=== PATIENT | female | born 1975 | race Caucasian/White ===

== ENCOUNTER 2016-08-24 05:10 | Inpatient (IN) | payer OTHER ==
[2016-08-17 13:36] VITALS: BMI 36.0
[2016-08-24] MEDS ORDERED: VASOPRESSIN 20 UNITS/ML VIAL IV ONE (07:54)
[2016-08-24] MEDS ORDERED: ROPIVACAINE HCL 0.5% 30ML VIAL ONE (09:16)
[2016-08-24] MEDS ORDERED: MIDAZOLAM HCL 2 MG/2 ML SINGLE DOSE VIAL ONE ×3 (09:17→09:58)
[2016-08-24] MEDS ORDERED: ceFAZolin SODIUM 1 GM VIAL ONE (09:58)
[2016-08-24] MEDS ORDERED: DEXAMETHASONE SOD PHOSPHATE 4 MG/1 ML VIAL ONE (09:58)
[2016-08-24] MEDS ORDERED: ROCURONIUM BROMIDE 50 MG/5 ML VIAL ONE (09:58)
[2016-08-24] MEDS ORDERED: KETOROLAC TROMETHAMINE 30 MG/1 ML VIAL ONE (09:58)
[2016-08-24] MEDS ORDERED: PROPOFOL 20 ML ONE (09:58)
[2016-08-24] MEDS ORDERED: SODIUM CHLORIDE 0.9% P/F 10 ML VIAL IJ ONE (09:58)
[2016-08-24] MEDS ORDERED: ceFAZolin SODIUM 1 GM VIAL IVPB ONE (10:18)
[2016-08-24] MEDS ORDERED: HYDROmorphone HCL CARPU-JECT 1 MG/1 ML DISP.SYRIN IVPUSH PRN (11:06)
[2016-08-24] MEDS ORDERED: ONDANSETRON 4 MG/2 ML VIAL IVPUSH PRN (11:06)
[2016-08-24] MEDS ORDERED: GLYCOPYRROLATE 0.2 MG/1 ML VIAL ONE (11:42)
[2016-08-24] MEDS ORDERED: NEOSTIGMINE METHYLSULFATE 0.5 MG/ML - 10 ML MDV ONE (11:42)
[2016-08-24] MEDS ORDERED: IBUPROFEN 800 MG/8 ML IJ IVPB PRN (12:01)
[2016-08-24] MEDS ORDERED: IBUPROFEN 600 MG TABLET (FP) PO PRN (12:01)
[2016-08-24] MEDS ORDERED: ONDANSETRON 4 MG/2 ML VIAL IVPB PRN (12:01)
--- NOTE | 2016-08-24 12:13 | HP ---
Past Medical History - Primary Care Physician PCP:: Christopher Marina - Admission Chief Complaint: pelvic pain, menometrorrhagia, fibroid uterus History of Present Illness: 41 yo f with hx of multiple myomas, second trimester wants to get preganat , has pelvic pain, heavey vaginal bleeding , admitted for multiple myomectomy, rba discussed History Source: Patient Limitations to Obtaining History: No Limitations - Past Medical History ...: 2 ...Para: 0 Heme/Onc: Yes: Anemia Additional Medical History: Obesity - Past Surgical History Hx Myomectomy: No Hx Transabdominal Cerclage: No - Smoking History Smoking history: Current some day smoker Have you smoked in the past 12 months: Yes Aproximately how many cigarettes per day: 1.5 If you are a former smoker, when did you quit?: 07/18/14 - Alcohol/Substance Use Hx Alcohol Use: No History of Substance Use: reports: None - Social History ADL: Independent History of Recent Travel: No Home Medications - Allergies Allergies/Adverse Reactions: Allergies Allergy/AdvReac Type Severity Reaction Status Date / Time No Known Allergies Allergy Verified 08/17/16 13:27 - Home Medications Home Medications: Ambulatory Orders Iron Polysaccharide Complex [Ferrex 150] 300 mg PO DAILY 08/17/16 Review of Systems - Review of Systems Constitutional: reports: Weakness Eyes: reports: No Symptoms HENT: reports: No Symptoms Neck: reports: No Symptoms Cardiovascular: reports: No Symptoms Gastrointestinal: reports: Abdominal Pain, Bloating Genitourinary: reports: Urgency, Vaginal Bleeding Breasts: reports: No Symptoms Reported Musculoskeletal: reports: No Symptoms Integumentary: reports: No Symptoms Neurological: reports: No Symptoms Endocrine: reports: No Symptoms Hematology/Lymphatic: reports: No Symptoms Psychiatric: reports: No Symptoms 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 Vital Signs: Vital Signs Temperature 97.5 F L 08/24/16 08:56 Pulse Rate 80 08/24/16 08:56 Respiratory Rate 18 08/24/16 08:56 Blood Pressure 127/84 08/24/16 08:56 O2 Sat by Pulse Oximetry (%) 97 08/24/16 09:06 Constitutional: Yes: Well Nourished, No Distress, Calm Eyes: Yes: WNL, Conjunctiva Clear, EOM Intact HENT: Yes: WNL, Atraumatic, Normocephalic Neck: Yes: WNL, Supple, Trachea Midline Cardiovascular: Yes: WNL, Regular Rate and Rhythm Respiratory: Yes: WNL, Regular, CTA Bilaterally Gastrointestinal: Yes: WNL ...Rectal Exam: Yes: WNL Renal/: Yes: WNL Pelvis: Yes: WNL Internal Exam Deferred: No Vaginal Exam: Yes: Normal Cervix: Yes: Normal Uterus: Yes: Enlarged, Lumpy, Mass, Tender Breast(s): Yes: WNL Musculoskeletal: Yes: WNL Extremities: Yes: WNL Integumentary: Yes: WNL Neurological: Yes: WNL, Alert, Oriented ...Motor Strength: WNL Psychiatric: Yes: WNL, Alert, Oriented Problem List - Problem (1) Pelvic pain Code(s): R10.2 - PELVIC AND PERINEAL PAIN (2) Leiomyoma of body of uterus Code(s): D25.9 - LEIOMYOMA OF UTERUS, UNSPECIFIED Qualifiers: Uterine leiomyoma location: subserosal Qualified Code(s): D25.2 - Subserosal leiomyoma of uterus (3) Menometrorrhagia Code(s): N92.1 - EXCESSIVE AND FREQUENT MENSTRUATION WITH IRREGULAR CYCLE Assessment/Plan abdominal myomectomy, rba discussed
[2016-08-24] MEDS ORDERED: HYDROmorphone HCL CARPU-JECT 2 MG/1 ML DISP.SYRIN ONE (12:32)
[2016-08-24] MEDS ORDERED: HYDROmorphone HCL CARPU-JECT 2 MG/1 ML DISP.SYRIN IVPUSH ONE ×4 (12:35→13:15)
[2016-08-24] MEDS ORDERED: HYDROmorphone *PCA* 10MG/50ML DISP.SYRIN PCA ONE ×2 (13:43→13:53)
[2016-08-24] MEDS: ELECTROLYTE-148 SOLN 1,000 ML IV SCH (19:29)
[2016-08-24] MEDS: LACTATED RINGERS SOLUTION 1,000 ML IV SCH (19:29)
[2016-08-24] MEDS: HYDROmorphone *PCA* 10MG/50ML DISP.SYRIN PCA SCH (19:31)
[2016-08-24] MEDS: CEFAZOLIN 2 GM/D5W 50 ML IVPB SCH (19:37)
[2016-08-25] MEDS: CEFAZOLIN 2 GM/D5W 50 ML IVPB SCH (02:44)
[2016-08-25] MEDS: oxyCODONE HCL 5 MG TABLET PO PRN ×3 (04:45→14:27)
[2016-08-25] MEDS ORDERED: HYDROmorphone *PCA* 10MG/50ML DISP.SYRIN PCA ONE (07:28)
[2016-08-25 07:45] LABS: BASOPHIL 0.2 % (0-2.0); EOSINOPHIL 0.5 % (0-4.5); MCH 21.6 pg (25.7-33.7); MCHC 30.5 g/dl (32.0-36.0); MEAN CELL VOLUME 70.9 fl (80-96); MEAN PLT VOLUME 10.7 fl (7.5-11.1); NEUTROPHILS 62.8 % (42.8-82.8); PLATELET COUNT 171 K/MM3 (134-434); RDW 21.7 % (11.6-15.6); WHITE BLOOD COUNT 6.9 K/mm3 (4.0-10.0)
[2016-08-25] MEDS: ELECTROLYTE-148 SOLN 1,000 ML IV SCH ×2 (07:45→14:30)
[2016-08-25] MEDS: HYDROmorphone *PCA* 10MG/50ML DISP.SYRIN PCA SCH (07:47)
[2016-08-25] MEDS ORDERED: BISACODYL 5 MG TABLET.DR (FP) PO ONE (08:50)
[2016-08-25] MEDS ORDERED: SIMETHICONE 80 MG TAB.CHEW (FP) PO PRN (08:51)
[2016-08-25 09:22] LABS: ANISOCYTOSIS 1+; HYPOCHROMIA 1+; PLATELET ESTIMATE ADEQUATE (NORMAL)
[2016-08-25] MEDS ORDERED: MULTIVITAMINS (DAILY MVI) TABLET (FP) PO SCH (10:00)
--- NOTE | 2016-08-25 10:43 | OP ---
DATE OF OPERATION: 08/24/2016 PREOPERATIVE DIAGNOSIS: Pelvic pain, menometrorrhagia, fibroid uterus. POSTOPERATIVE DIAGNOSIS: Pelvic pain, menometrorrhagia, fibroid uterus. PROCEDURE: Abdominal myomectomy. SURGEON: Christopher Muniz MD FORENSIC EXAMINER: Gloria Kiran MD ANESTHESIA: General. ESTIMATED BLOOD LOSS: 200 mL. DESCRIPTION OF PROCEDURE: The patient was taken to the operating room. Under adequate general anesthesia, a Pfannenstiel abdominal skin incision was made. Abdominal wall was cut layer by layer until the peritoneum was exposed and incised. Upon entering the abdominal cavity, upper abdomen was checked, was normal. Bowels were packed away. Uterus was enlarged, irregular, with multiple myomas. Five of them were seen. There was a large, approximately 5-cm myoma in the intramural fundal area of the uterus, and there was another 4-cm in the body of the uterus intramural in the midportion of the uterus. There was a 3-cm fibroid in the posterior wall of the uterus, and there were 2 smaller fibroids in the lower uterine segment area of the uterus. At this time the uterus was delivered to the surface, and the fibroids were infiltrated with dilute solution of vasopressin. An incision was made with the cautery over the serosa of the fibroid. Both edges were grasped with an Allis clamp, and then undermined with hemostat, and the serosa was from the myoma, and then myoma was dissected with blunt and with cautery until the base was reached, and the Tiffanie clamp was applied at the base of the fibroid and the pedicle was sutured with 2-0 Vicryl suture, and hemostasis was established. Then the uterus wall was reconstructed with a V-Loc suture in 3 layers. Hemostasis was established and then the serosa was brought together with baseball suture. The same procedure was repeated for all the fibroids, and there were a total of 5 fibroids removed. Then pelvic cavity irrigated an no active bleeding was seen. Both tubes were slightly dilated with multiple filmy adhesions. These adhesions were lysed and the tube was freed. There were small cysts on the left ovary which were drained and then hemostasis established with interrupted suture of 2-0 Vicryl. Then the Surgicel was applied over the fibroid and then peritoneum was closed with 0 Vicryl continuous suture, muscle was brought together with interrupted suture of 0 Vicryl. Fascia was closed with 0 Vicryl continuous suture, subcutaneous fat with interrupted suture of 0 Vicryl, and the skin was closed with 3-0 Vicryl subcuticular continuous suture. The patient tolerated the procedure well, left the OR in good condition. CHRISTOPHER MUNIZ M.D. [id number]
--- NOTE | 2016-08-25 11:34 | PN ---
Progress Note (short form) - Note Progress Note: pod 1 ,s/p multiple myomectomy Last Vital Signs Temp Pulse Resp BP Pulse Ox 98 F 72 18 108/60 100 08/25/16 06:00 08/25/16 07:47 08/25/16 07:47 08/25/16 07:47 08/24/16 21:00 CBC, BMP 08/25/16 06:50 has dull low abdominal pain, no vaginal bleeding, no dizziness abdomen soft, no distension, no cva, no guarding no vaginal bleeding, no calf tenderness impression anemia . chronic, asymptomatic advised observation, repeat cbc in am iron and voit Problem List - Problems (1) Pelvic pain Code(s): R10.2 - PELVIC AND PERINEAL PAIN (2) Leiomyoma of body of uterus Code(s): D25.9 - LEIOMYOMA OF UTERUS, UNSPECIFIED Qualifiers: Uterine leiomyoma location: subserosal Qualified Code(s): D25.2 - Subserosal leiomyoma of uterus (3) Menometrorrhagia Code(s): N92.1 - EXCESSIVE AND FREQUENT MENSTRUATION WITH IRREGULAR CYCLE
[2016-08-25 14:14] VITALS: BP 111/68; PULSE 78; TEMP 98.2
[2016-08-25] MEDS: LACTATED RINGERS SOLUTION 1,000 ML IV SCH (14:30)
--- NOTE | 2016-08-25 14:31 | PN ---
Progress Note (short form) - Note Progress Note: S: Pt. resting comfortably. O: VAS 1-2/10 with rest. 6/10 with ambulation A/P: Pod #1 s/p Abd myomectomy with bilat. TAP blocks 1. SCRAP METAL BURNER d/cd this am 2. Continue po pain meds as ordered
--- NOTE | 2016-08-25 15:04 | PATH ---
Surgical Pathology Report Patient Name: LOPEZ SUAREZ [facility]. Rec. #: [id number] /Age/Gender: 1975 (Age: 41) / F Account: [id number] Location: [facility] MED/SURG Taken: 08/24/2016 Received: 08/24/2016 Reported: 08/25/2016 Physicians: Christopher Marina M.D. Specimen(s) Received UTERINE FIBROIDS Clinical History Leiomyoma of uterus, pelvic and perineal pain Final Diagnosis UTERUS, ABDOMINAL MYOMECTOMY: LEIOMYOMATA WITH DEGENERATIVE CHANGES, AND ADENOMYOSIS. BENIGN SEROUS CYST PRESENT SUGGESTIVE OF HYDROSALPINX. Electronically Signed Jones San M.D. Gross Description Received in formalin, labeled "fibroids," is a 102 g, 9.0 x 8.0 x 4.0 cm aggregate of multiple nguyen, irregular portions of firm to rubbery tissue, consistent with fibroids. The cut surface of the 2 larger fibroid displays foci of central degeneration and necrosis. Also received within the same container is a 1.5 x 1.0 x 0.7 cm nguyen, intact cyst containing clear serous fluid. Liquid Fertilizer Servicer sections are submitted in 8 cassettes as follows: 1-entirely submitted cyst; 4-4-wfbruhgyzxfsme smaller fibroids; 4-5-second largest fibroid; 6-8-largest fibroid. 08/24/201608/24/2016
--- NOTE | 2016-08-26 08:30 | DS ---
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 Vital Signs: Vital Signs Temperature 98.2 F 08/25/16 14:13 Pulse Rate 78 08/25/16 14:13 Respiratory Rate 20 08/25/16 14:13 Blood Pressure 111/68 08/25/16 14:13 O2 Sat by Pulse Oximetry (%) 100 08/25/16 09:00 Constitutional: Yes: Well Nourished, No Distress, Calm Eyes: Yes: WNL, Conjunctiva Clear, EOM Intact HENT: Yes: WNL, Atraumatic, Normocephalic Neck: Yes: WNL, Supple, Trachea Midline Cardiovascular: Yes: WNL, Regular Rate and Rhythm Respiratory: Yes: WNL, Regular, CTA Bilaterally Gastrointestinal: Yes: WNL, Normal Bowel Sounds, Soft ...Rectal Exam: Yes: Deferred Renal/: Yes: WNL Pelvis: Yes: WNL External Genitalia: Yes: Normal Breast(s): Yes: WNL Musculoskeletal: Yes: WNL Extremities: Yes: WNL Integumentary: Yes: WNL Wound/Incision: Yes: Clean/Dry, Well Approximated, Sutures Intact Neurological: Yes: WNL, Alert, Oriented ...Motor Strength: WNL Psychiatric: Yes: WNL, Alert, Oriented Labs: CBC, BMP 08/25/16 06:50 Discharge Summary Reason For Visit: LEIMYOMA OF UTERUS,PELVIC & PERINEAL PAIN Procedures: Principal: multiple abdominal myomectomy Hospital Course: uneventful Condition: Good - Instructions Diet, Activity, Other Instructions: regular diet, follow up office 2 weeks, if dizziness , headache, fever, pain , bleeding call MD Referrals: Christopher Marina MD [Staff Physician] - Disposition: HOME - Home Medications Comprehensive Discharge Medication List: Ambulatory Orders Iron Polysaccharide Complex [Ferrex 150] 300 mg PO DAILY 08/17/16 Ibuprofen [Motrin -] 600 mg PO TID #90 tablet 08/25/16 Oxycodone HCl [Oxaydo] 7.5 mg PO QID PRN #20 tablet.orl MDD 4 08/25/16
== END 2016-08-25 19:35 | disposition home or self-care (01) | DRG 743 ==
LOC: JSAMEDAYSX 05:10 → J8W 15:35
PROVIDERS: ADMIT Obstetrics & Gynecology; ATTEND Obstetrics & Gynecology
PROC: 0UN70ZZ Release Bilateral Fallopian Tubes, Open Approach (ICD-10-PCS; 2016-08-24)
PROC: 0U910ZZ Drainage of Left Ovary, Open Approach (ICD-10-PCS; 2016-08-24)
PROC: 3E0P05Z Introduction of Adhesion Barrier into Female Reproductive, Open Approach (ICD-10-PCS; 2016-08-24)
PROC: 0UB90ZZ Excision of Uterus, Open Approach (ICD-10-PCS; principal; 2016-08-24 10:00)
DX: D25.2 Subserosal leiomyoma of uterus (principal); R10.2 Pelvic and perineal pain; N92.1 Excessive and frequent menstruation with irregular cycle; N73.6 Female pelvic peritoneal adhesions (postinfective); N83.202 Unspecified ovarian cyst, left side; D64.9 Anemia, unspecified; E66.9 Obesity, unspecified; Z68.36 Body mass index [BMI] 36.0-36.9, adult; Z72.0 Tobacco use
CPT/HCPCS: 36415; 84703; 85025; 86850; 86900; 86901; 88307-TC; 94010; 94760

== ENCOUNTER 2016-08-28 23:19 | Emergency (ER) | payer OTHER ==
[2016-08-28 23:25] VITALS: BP 131/80; PULSE 92; TEMP 97.7; BMI 79.4
--- NOTE | 2016-08-29 01:51 | PDOC ---
History of Present Illness - General Chief Complaint: Wound Stated Complaint: OPEN WOUND Time Seen by Provider: 08/29/16 00:12 History Source: Patient Exam Limitations: No Limitations ( review of sness) - History of Present Illness Initial Comments: 08/29/16 01:30 Patient is a 41 year old female with h/o fibroid s/p abdominal myomectomy by Dr. Crockett on 5 days ago presents here with complaints of wound of dehiscence. States she took the bandage off today as instructed and noticed the the wound was open in spots and she had a discharge which she thinks is pus. Pain is her regular post op pain, denies redness. PMD: Dr. Logan PMHX: as above PSOCHX: neg cig, drug, etoh Famhx: noncontributory ALL: NKDA GENERAL/CONSTITUTIONAL: [No fever or chills. No weakness. No weight change.] HEAD, EYES, EARS, NOSE AND THROAT: [No change in vision. No ear pain or discharge. No sore throat.] CARDIOVASCULAR: [No chest pain or shortness of breath.] RESPIRATORY: [No cough, wheezing, or hemoptysis.] GASTROINTESTINAL: [No nausea, vomiting, diarrhea or constipation. No rectal bleeding.] GENITOURINARY: [No dysuria, frequency, or change in urination.] MUSCULOSKELETAL: [No joint or muscle swelling or pain. No neck or back pain.] SKIN AND BREASTS: [No rash or easy bruising.] NEUROLOGIC: [No headache, vertigo, loss of consciousness, or loss of sensation.] PSYCHIATRIC: [No depression or anxiety.] ENDOCRINE: [No increased thirst. No abnormal weight change.] HEMATOLOGIC/LYMPHATIC: [No anemia, easy bleeding, or history of blood clots.] ALLERGIC/IMMUNOLOGIC: [No hives or skin allergy. No latex allergy.] GENERAL: [The patient is awake, alert, and fully oriented, mild distress.] HEAD: [Normal with no signs of trauma.] EYES: [Pupils equal, round and reactive to light, extraocular movements intact, sclera anicteric, conjunctiva clear.] ENT: [Ears normal, nares patent, oropharynx clear without exudates. Moist mucous membranes.] NECK: [Normal range of motion, supple without lymphadenopathy, JVD, or masses.] LUNGS: [Breath sounds equal, clear to auscultation bilaterally. No wheezes, and no crackles.] HEART: [Regular rate and rhythm, normal S1 and S2 without murmur, rub.] ABDOMEN: [Soft, mild tenderness over the incision, normoactive bowel sounds. No guarding, no rebound. No masses.] EXTREMITIES: [Normal range of motion, no edema. No clubbing or cyanosis. No cords, erythema, or tenderness.] NEUROLOGICAL: [Cranial nerves II through XII grossly intact. Normal speech, normal gait.] PSYCH: [Normal mood, normal affect.] SKIN: abdominal incision no redeness no warmth, small open area skipped along the incision 1mm - 5 mm, no discharge, dry, normal turgor, Past History - Past Medical History Allergies/Adverse Reactions: Allergies Allergy/AdvReac Type Severity Reaction Status Date / Time No Known Allergies Allergy Verified 08/28/16 23:21 Home Medications: Ambulatory Orders Iron Polysaccharide Complex [Ferrex 150] 300 mg PO DAILY 08/17/16 Ibuprofen [Motrin -] 600 mg PO TID #90 tablet 08/25/16 Oxycodone HCl [Oxaydo] 7.5 mg PO QID PRN #20 tablet.orl MDD 4 08/25/16 Anemia: Yes Asthma: No Cancer: No Cardiac Disorders: No CVA: No COPD: No CHF: No Dementia: No Diabetes: No GI Disorders: No (GERD) Disorders: No HTN: No Hypercholesterolemia: No Liver Disease: No Seizures: No Thyroid Disease: No - Surgical History Abdominal Surgery: Yes (GASTRIC BY-PASS 2002) Appendectomy: No Cardiac Surgery: No Cholecystectomy: No Lung Surgery: No Neurologic Surgery: No Orthopedic Surgery: No - Reproductive History (#): 4 Para: 0 Therapeutic (s) & number: No Spontaneous : 3 - Immunization History Immunization Up to Date: Yes - Psycho/Social/Smoking Cessation Hx Anxiety: No Suicidal Ideation: No Smoking Status: Yes Smoking History: Never smoked Have you smoked in the past 12 months: Yes Number of Cigarettes Smoked Daily: 0 If you are a former smoker, when did you quit?: 07/18/14 Cigars Per Day: 0 Information on smoking cessation initiated: No 'Breaking Loose' booklet given: 08/24/16 Hx Alcohol Use: No Drug/Substance Use Hx: No Substance Use Type: None Hx Substance Use Treatment: No *Physical Exam - Vital Signs Last Vital Signs Temp Pulse Resp BP Pulse Ox 97.7 F 92 H 14 131/80 98 08/28/16 23:22 08/28/16 23:22 08/28/16 23:22 08/28/16 23:22 08/28/16 23:22 Medical Decision Making - Medical Decision Making 08/29/16 01:51 Patient is a 41 year old female with h/o fibroid s/p abdominal myomectomy by Dr. Logan on 5 days ago presents here with complaints of wound of dehiscence. Wound looks good, healing well, small open area with no discharge, no redness. Case was d/w Dr. Kiran who has instructed that the patient keep the wound clean and dry and come to the office next week for follow up. I discussed the physical exam findings, ancillary test results and final diagnoses with the patient. I answered all of the patient's questions. The patient was satisfied with the care received and felt comfortable with the discharge plan and treatment plan. The Patient agrees to follow up with the primary care physician within 24-72 hours. *DC/Admit/Observation/Transfer Diagnosis at time of Disposition: Encounter for postoperative wound care - Discharge Dispostion Disposition: HOME Condition at time of disposition: Stable - Referrals Referrals: Brennon Gregory MD [Primary Care Provider] - Christopher Marina MD [Staff Physician] - - Patient Instructions Additional Instructions: Your Discharge Instructions: You must call primary care physician within 24 hours to arrange follow-up. Return to the Emergency Department with any new, persistent or worsening symptoms, for fever, chills, SOB, dizziness or any other concerning changes that may occur.
== END 2016-08-29 02:12 | disposition home or self-care (01) ==
LOC: JER 23:19
DX: T81.31XA Disruption of external operation (surgical) wound, not elsewhere classified, initial encounter (principal)
CPT/HCPCS: 99282-25

== ENCOUNTER 2020-05-28 14:52 | Emergency (ER) | payer OTHER ==
[2020-05-28 15:02] VITALS: BP 136/82; PULSE 84; TEMP 98.3; BMI 37.3
[2020-05-28] MEDS ORDERED: KETOROLAC TROMETHAMINE 60 MG/2 ML VIAL IM ONE (15:31)
[2020-05-28] MEDS ORDERED: KETOROLAC TROMETHAMINE 30 MG/1 ML VIAL ONE (15:34)
== END 2020-05-28 15:38 | disposition home or self-care (01) ==
LOC: JERFT 14:52
PROC: 3E0233Z Introduction of Anti-inflammatory into Muscle, Percutaneous Approach (ICD-10-PCS; principal; 2020-05-28)
DX: M54.16 Radiculopathy, lumbar region (principal)
CPT/HCPCS: 99284-25

== ENCOUNTER 2021-12-01 17:51 | Emergency (ER) | payer OTHER ==
[2021-12-01 18:17] VITALS: BP 170/100; PULSE 78; TEMP 98.6; BMI 44.9
[2021-12-01] MEDS ORDERED: KETOROLAC TROMETHAMINE 30 MG/1 ML VIAL IM ONE (19:37)
[2021-12-01] MEDS ORDERED: ACETAMINOPHEN 500 MG TABLET (FP) PO ONE (19:37)
[2021-12-01] MEDS ORDERED: KETOROLAC TROMETHAMINE 30 MG/1 ML VIAL ONE (20:15)
[2021-12-01] MEDS ORDERED: ACETAMINOPHEN 500 MG TABLET (FP) ONE (20:15)
[2021-12-01] MEDS ORDERED: LIDOCAINE HCL 2% (50ML VIAL) SQ ONE (21:51)
[2021-12-01] MEDS ORDERED: LIDOCAINE HCL 2% (20ML MULTI-DOSE VIAL) ONE (21:51)
[2021-12-01] MEDS ORDERED: ONDANSETRON *ODT* 4 MG TABLET SL ONE (22:23)
[2021-12-01] MEDS ORDERED: ONDANSETRON *ODT* 4 MG TABLET ONE (22:35)
== END 2021-12-01 22:58 | disposition home or self-care (01) ==
LOC: JER 17:51
PROC: 0SSG3ZZ Reposition Left Ankle Joint, Percutaneous Approach (ICD-10-PCS; principal; 2021-12-01)
PROC: 2W3QX1Z Immobilization of Right Lower Leg using Splint (ICD-10-PCS; 2021-12-01)
PROC: 3E0233Z Introduction of Anti-inflammatory into Muscle, Percutaneous Approach (ICD-10-PCS; 2021-12-01)
DX: S93.04XA Dislocation of right ankle joint, initial encounter (principal); W10.9XXA Fall (on) (from) unspecified stairs and steps, initial encounter
CPT/HCPCS: 73610-TC-RT-FY; 73630-TC-RT-FY; 99284-25; Q0162

== ENCOUNTER 2022-07-01 10:44 | Observation (INO) | payer OTHER ==
[2022-07-01 10:56] VITALS: BMI 39.1
[2022-07-01 13:12] LABS: BASO % 0.5 % (0-2.0); EOS % 0.5 % (0-4.5); HEMATOCRIT 26.6 % (32.4-45.2); HEMOGLOBIN 8.4 GM/dL (10.7-15.3); LYMPH % 20.9 % (8-40); MCH 25.2 pg (25.7-33.7); MCHC 31.8 g/dl (32.0-36.0); MEAN CELL VOLUME 79.5 fl (80-96); MEAN PLT VOLUME 9.9 fl (7.5-11.1); MONO % 7.6 % (3.8-10.2); NEUT % 70.5 % (42.8-82.8); PLATELET COUNT 251 10^3/uL (134-434); RBC 3.34 M/mm3 (3.60-5.2); RDW 17.7 % (11.6-15.6); WHITE BLOOD COUNT 6.6 K/mm3 (4.0-10.0)
[2022-07-01 13:19] LABS: INR 1.09 (0.83-1.09); PROTHROMBIN TIME (PATIENT) 12.5 SEC (9.7-13.0)
[2022-07-01 13:21] LABS: ACTIVATED PTT 25.8 SECONDS (25.2-36.5)
[2022-07-01 13:33] LABS: ALBUMIN 3.6 g/dl (3.4-5.0); CALCIUM 9.2 mg/dL (8.5-10.1)
[2022-07-01 13:34] LABS: BLOOD UREA NITROGEN 8.9 mg/dL (7-18)
[2022-07-01 13:37] LABS: CREATININE 0.6 mg/dL (0.55-1.3)
[2022-07-01 13:38] LABS: BILIRUBIN,TOTAL 0.4 mg/dL (0.2-1); TOT PROT 6.5 g/dl (6.4-8.2)
[2022-07-01 14:09] LABS: HCG,QUALITATIVE URINE Negative
[2022-07-01 14:10] LABS: URINE APPEARANCE CLOUDY; URINE COLOR RED; URINE GLUCOSE (UA) NEGATIVE (NEGATIVE)
[2022-07-01 14:11] LABS: URINE BILIRUBIN NEGATIVE (NEGATIVE)
[2022-07-01 14:13] LABS: URINE PROTEIN 3+ (NEGATIVE); URINE UROBILINOGEN 0.2 mg/dL (0.2-1.0)
[2022-07-01 16:43] LABS: BASO % 0.5 % (0-2.0); EOS % 0.5 % (0-4.5); HEMATOCRIT 25.4 % (32.4-45.2); MCHC 31.5 g/dl (32.0-36.0); MEAN CELL VOLUME 79.4 fl (80-96); MONO % 5.5 % (3.8-10.2); NEUT % 68.5 % (42.8-82.8); PLATELET COUNT 238 10^3/uL (134-434); RDW 17.4 % (11.6-15.6); WHITE BLOOD COUNT 6.7 K/mm3 (4.0-10.0)
[2022-07-01 21:13] LABS: RETICULOCYTES 3.42 % (0.5-1.5)
[2022-07-02 07:38] LABS: BASO % 0.6 % (0-2.0); EOS % 0.9 % (0-4.5); HEMOGLOBIN 8.7 GM/dL (10.7-15.3); LYMPH % 28.9 % (8-40); MCHC 32.3 g/dl (32.0-36.0); MEAN CELL VOLUME 80.5 fl (80-96); MEAN PLT VOLUME 9.7 fl (7.5-11.1); MONO % 9.6 % (3.8-10.2); PLATELET COUNT 207 10^3/uL (134-434); RBC 3.36 M/mm3 (3.60-5.2); RDW 17.6 % (11.6-15.6); WHITE BLOOD COUNT 5.4 K/mm3 (4.0-10.0)
[2022-07-02 07:58] LABS: CALCIUM 8.8 mg/dL (8.5-10.1)
[2022-07-02 07:59] LABS: BLOOD UREA NITROGEN 10.6 mg/dL (7-18); MAGNESIUM 2.3 mg/dL (1.8-2.4)
[2022-07-02 08:02] LABS: CREATININE 0.6 mg/dL (0.55-1.3); PHOSPHOROUS 3.3 mg/dL (2.5-4.9)
[2022-07-02 08:03] LABS: BILIRUBIN,TOTAL 1.1 mg/dL (0.2-1); TOT PROT 5.7 g/dl (6.4-8.2)
[2022-07-02 08:16] VITALS: RESP 18
[2022-07-02] MEDS ORDERED: ENOXAPARIN NA (PORCINE) 40 MG/0.4 ML DISP.SYRIN SQ SCH (10:00)
[2022-07-02] MEDS ORDERED: ACETAMINOPHEN 1000 MG/100 ML BAG IVPB PRN (13:57)
[2022-07-02] MEDS ORDERED: ACETAMINOPHEN INJECTION 100 ML IVPB ONE (14:24)
[2022-07-02 16:18] VITALS: BP 120/72; PULSE 76; TEMP 97.9
[2022-07-02] MEDS ORDERED: medroxyPROGESTERone ACET 5 MG TABLET PO SCH (17:15)
[2022-07-02 17:41] LABS: HEMATOCRIT 30.1 % (32.4-45.2); HEMOGLOBIN 9.6 GM/dL (10.7-15.3); MCH 25.6 pg (25.7-33.7); MCHC 31.9 g/dl (32.0-36.0); MEAN CELL VOLUME 80.2 fl (80-96); MEAN PLT VOLUME 10.1 fl (7.5-11.1); PLATELET COUNT 174 10^3/uL (134-434); RBC 3.75 M/mm3 (3.60-5.2); RDW 17.6 % (11.6-15.6); WHITE BLOOD COUNT 6.7 K/mm3 (4.0-10.0)
== END 2022-07-02 19:07 | disposition home or self-care (01) ==
LOC: JER 10:44 → JERBED 17:59
PROVIDERS: ADMIT Internal Medicine; ATTEND Internal Medicine
PROC: 3E033NZ Introduction of Analgesics, Hypnotics, Sedatives into Peripheral Vein, Percutaneous Approach (ICD-10-PCS; principal; 2022-07-01)
DX: N93.9 Abnormal uterine and vaginal bleeding, unspecified (principal); D21.9 Benign neoplasm of connective and other soft tissue, unspecified; D50.9 Iron deficiency anemia, unspecified; E66.8 Other obesity; Z68.39 Body mass index [BMI] 39.0-39.9, adult; Z72.0 Tobacco use; Z29.8 Encounter for other specified prophylactic measures
CPT/HCPCS: 0241U-QW; 36415; 36430; 76830-TC; 80053; 81003; 82728; 83540; 83550; 83735; 84100; 84484; 84703; 85025; 85027; 85045; 85610; 85730; 86850; 86900; 86901; 86922; 93005; 93010; 96374; 99285-25; G0378; P9058